=== PATIENT | female | born 1980 | race Caucasian/White ===

== ENCOUNTER 2016-08-27 09:09 | Emergency (ER) | payer OTHER ==
[2016-08-27 09:21] VITALS: TEMP 98; BMI 31.6
[2016-08-27] MEDS ORDERED: ACETAMINOPHEN 325 MG TABLET (FP) PO ONE (09:40)
[2016-08-27] MEDS ORDERED: ACETAMINOPHEN 325 MG TABLET (FP) ONE (09:42)
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
[2016-08-27] MEDS ORDERED: IBUPROFEN 400 MG TABLET (FP) PO ONE (12:25)
[2016-08-27] MEDS ORDERED: IBUPROFEN 600 MG TABLET (FP) PO ONE (12:29)
[2016-08-27 13:41] VITALS: BP 145/60; PULSE 89
== END 2016-08-27 13:45 | disposition home or self-care (01) ==
LOC: JER 09:09
DX: M54.5 Low back pain (principal); S09.8XXA Other specified injuries of head, initial encounter; V43.62XA Car passenger injured in collision with other type car in traffic accident, initial encounter; Y92.412 Parkway as the place of occurrence of the external cause; Y93.89 Activity, other specified; Y99.0 Civilian activity done for income or pay
CPT/HCPCS: 70450-TC; 70486-TC; 72070-TC; 72100-TC; 72125-TC; 84703; 99283-25